=== PATIENT | female | born 1935 | race Caucasian/White ===

== ENCOUNTER 2018-09-13 10:55 | Day surgery (SDC) | payer OTHER ==
[2018-09-13 11:10] LABS: Absolute Lymphocytes (CBC) 2.3 K/uL (0.7-4.9); Absolute Monocytes 0.6 K/uL (0.1-1.3); Absolute Neutrophil 3.3 K/uL (1.8-8.0); Eosinophils % 3.4 % (0-4.4); Hematocrit 40.1 % (36.0-45.0); Lymphocytes % 35.6 % (15.3-44.8); MPV 8.5 fL (7.6-11.3); Monocytes % 8.6 % (3.3-12.3); RBC Red Blood Cell Count 4.38 M/uL (3.86-4.86)
[2018-09-13 11:13] LABS: Protime INR 0.96
[2018-09-13 11:28] LABS: Urine Appearance CLEAR; Urine Bilirubin NEGATIVE (NEG); Urine Blood NEGATIVE (NEG); Urine Color YELLOW; Urine Glucose NEGATIVE (NEG); Urine Protein NEGATIVE (NEG); Urine Specific Gravity 1.015 (1.005-1.030); Urine Urobilinogen 0.2 mg/dL (0.2-1.0); Urine pH 6.5 (5.0-7.0)
[2018-09-13 11:36] LABS: Phosphorus 3.1 mg/dL (2.5-4.9); Potassium 4.4 mmol/L (3.5-5.1); Uric Acid 5.6 mg/dL (2.6-6.0)
[2018-09-13 11:55] LABS: Urine Microscopic Reflex ORDER UMIC
[2018-09-13 12:07] LABS: Urine Bacteria <20 /HPF (<20); Urine Culture Reflex Order NOT NEEDED; Urine Mucus 1+ /HPF (NONE SEEN); Urine RBC <5 /HPF (NONE SEEN)
[2018-09-13] MEDS ORDERED: GENTAMICIN 100 MG/100 ML BAG 100 ML IV ONE (12:30)
[2018-09-13] MEDS ORDERED: Ringers Lactate 1,000 ML IV ONE (12:30)
[2018-09-13] MEDS ORDERED: FENTANYL CITR 100 MCG/2 ML ONE ×2 (14:57→16:32)
[2018-09-13] MEDS ORDERED: PROPOFOL 200 MG/20 ML VIAL IV ONE (14:58)
[2018-09-13] MEDS ORDERED: SCOPOLAMINE HYDROBROMIDE PATCH TD ONE (14:58)
[2018-09-13] MEDS ORDERED: LIDOCAINE 1% MPF 2 ML AMPULE ONE (15:00)
[2018-09-13] MEDS ORDERED: EPHEDRINE SULF 50 MG/10 ML SYR ONE (15:34)
[2018-09-13] MEDS ORDERED: GLYCOPYRROLATE 0.2 MG/ML SYR ONE (16:47)
--- NOTE | 2018-09-13 17:30 | RAD REPORT ---
EXAM DESCRIPTION: RAD - Fluoroscopy <1 Hour - 09/13/2018 5:24 pm CLINICAL HISTORY: Venous catheter insertion. LT KIDNEY STONE REMOVAL COMPARISON: Multiplanar Reconstruction dated 09/09/2018 FINDINGS: Fluoroscopic imaging is submitted of the abdomen related to retrograde pyelography with st one removal. Details of the procedure not available. Fluoroscopy time: 3 minutes and 24 seconds.
[2018-09-13] MEDS ORDERED: HYDROCODONE/APAP 5/325 MG TAB ONE (18:42)
[2018-09-13 18:56] VITALS: BP 159/77; TEMP 97.8; O2SAT 97
== END 2018-09-13 18:50 | disposition home or self-care (01) ==
LOC: OR 10:55
PROVIDERS: ATTEND Urology
PROC: 0T778DZ Dilation of Left Ureter with Intraluminal Device, Via Natural or Artificial Opening Endoscopic (ICD-10-PCS; 2018-09-13)
PROC: 0TF7XZZ Fragmentation in Left Ureter, External Approach (ICD-10-PCS; principal; 2018-09-13 11:45)
DX: N20.1 Calculus of ureter (principal); N13.30 Unspecified hydronephrosis; Q62.39 Other obstructive defects of renal pelvis and ureter; N81.6 Rectocele; N39.3 Stress incontinence (female) (male); N81.9 Female genital prolapse, unspecified; E78.00 Pure hypercholesterolemia, unspecified; I10 Essential (primary) hypertension; G47.00 Insomnia, unspecified; G62.9 Polyneuropathy, unspecified; M47.819 Spondylosis without myelopathy or radiculopathy, site unspecified; F41.9 Anxiety disorder, unspecified; Z79.899 Other long term (current) drug therapy
CPT/HCPCS: 87088; 85025; 87086; 80048; 36415; 84100; 85610; 84550; 85730; 87077; 87186; 50590; 52332; J2704; J3010 ×2; J2001; J1580; Q9967; 76000; 81003; 81015

== ENCOUNTER 2018-09-27 08:07 | Day surgery (SDC) | payer OTHER ==
[2018-09-27] MEDS ORDERED: GENTAMICIN 80 MG/100 ML BAG 80 MG/100 ML BAG IV ONE (08:43)
[2018-09-27] MEDS ORDERED: Ringers Lactate 1,000 ML IV ONE (08:43)
[2018-09-27] MEDS ORDERED: SCOPOLAMINE HYDROBROMIDE PATCH TD ONE (08:44)
--- NOTE | 2018-09-27 08:49 | RAD REPORT ---
EXAM DESCRIPTION: RAD - Abdomen 1 View (KUB) - 09/27/2018 8:32 am CLINICAL HISTORY: pre op Pain COMPARISON: Abdomen 1 View (KUB) dated 09/19/2018 FINDINGS: The bowel gas pattern is non-obstructive. No evidence of free air or pneumatosis. Left venita ble-J stent remains in place. A amorphous calcification along the course of the stent inferior to the left SI joint remains unchanged.
[2018-09-27] MEDS ORDERED: PROPOFOL 200 MG/20 ML VIAL IV ONE (09:04)
[2018-09-27] MEDS ORDERED: FENTANYL CITR 100 MCG/2 ML ONE (09:05)
[2018-09-27] MEDS ORDERED: LIDOCAINE 2% MPF 5 ML VIAL ONE (09:05)
[2018-09-27] MEDS ORDERED: ONDANSETRON 4 MG/2 ML VIAL ONE (09:06)
[2018-09-27] MEDS ORDERED: DEXAMETHASONE 10 MG/ML VIAL ONE (09:07)
--- NOTE | 2018-09-27 10:44 | RAD REPORT ---
EXAM DESCRIPTION: RAD - Cystography - 09/27/2018 10:30 am FINDINGS: There were 28 KUB images obtained during fluoroscopic assisted placement of a left uretera l stent. Fluoro time was 2 minutes 16 seconds. Images show stepwise placement of the stent. No suspicious or unexpected finding.
[2018-09-27] MEDS: HYDROMORPHONE HCL 1 MG/ML INJ ONE ×3 (10:48→10:53)
[2018-09-27 12:12] VITALS: TEMP 97.9
[2018-09-27 12:14] VITALS: BP 136/49; O2SAT 95
== END 2018-09-27 12:04 | disposition home or self-care (01) ==
LOC: OR 08:07
PROVIDERS: ATTEND Urology
PROC: 0T778DZ Dilation of Left Ureter with Intraluminal Device, Via Natural or Artificial Opening Endoscopic (ICD-10-PCS; 2018-09-27)
PROC: 0TF78ZZ Fragmentation in Left Ureter, Via Natural or Artificial Opening Endoscopic (ICD-10-PCS; principal; 2018-09-27 09:00)
DX: N13.2 Hydronephrosis with renal and ureteral calculous obstruction (principal); Q62.39 Other obstructive defects of renal pelvis and ureter; N81.6 Rectocele; N81.9 Female genital prolapse, unspecified; N39.3 Stress incontinence (female) (male); E78.00 Pure hypercholesterolemia, unspecified; I10 Essential (primary) hypertension; G47.00 Insomnia, unspecified; G62.9 Polyneuropathy, unspecified; F41.9 Anxiety disorder, unspecified; M47.819 Spondylosis without myelopathy or radiculopathy, site unspecified; Z79.899 Other long term (current) drug therapy
CPT/HCPCS: 51600; 52356; 74018; 74430; J1100; J1170; J1580; J2405; J2704; J3010; Q9967

== ENCOUNTER 2019-04-04 11:53 | Emergency (ER) | payer OTHER ==
[2019-04-04] MEDS ORDERED: MAGNESIUM SULFATE 1 gm IVPB 1 GM/100 ML BAG IV ONE (12:33)
[2019-04-04] MEDS ORDERED: TAMSULOSIN 0.4 MG SR CAP ONE (12:33)
[2019-04-04] MEDS ORDERED: MEPERIDINE HCL 25 MG/0.5 ML ONE ×2 (12:33→13:43)
--- NOTE | 2019-04-04 12:41 | RAD REPORT ---
EXAM DESCRIPTION: CT - Stone Protocol - 04/04/2019 12:29 pm CLINICAL HISTORY: Left flank pain, back pain that radiates to the left groin, history of kidney ston es COMPARISON: CT study August 2018 TECHNIQUE: Axial 5 mm thick images were obtained without oral or IV contrast. The [id number] span s the entirety of the system partially obscuring uppermost abdomen and lung bases. All CT scans are performed using dose optimization technique as appropriate and may include automated exposure control or mA/KV adjustment according to patient size. FINDINGS: No right-sided hydronephrosis and no right-sided obstructing calculus. There is a 7 mm sarahy cification upper pole calyx on the right. Severe dilatation of the pelvis, calices and proximal urete r noted down to the pelvic inlet level. There is a 3 millimeter ureteral calculus at the pelvic inlet . Distal to the stone the ureter is decompressed with no additional ureteral calculi seen. No bladder calculus. The August study showed similar pronounced dilatation of the left collecting system with a much larger stone at the pelvic inlet. Patient likely has chronic hydronephrosis and possible stric ture of the ureter at the pelvic inlet. Perinephric stranding is present on the left. No suspicious renal masses. Isodense masses and pyelonephritis are not excluded on a stone protocol CT scan. No significant adrenal finding. Imaged portions of the liver, spleen and pancreas show no suspicious findings on non-contrast imaging . No gallbladder or biliary tree abnormality identified. No suspicious bowel findings. Cecum is low lying along the right-side pelvic floor. No suspicion for appendicitis. A small fat only umbilical hernia is seen. No mass or bulky lymphadenopathy. No free air, free fluid or pneumatosis. Arterial tree calcifications are present. Bony degenerative changes are present without acute compone nt. IMPRESSION: Patient has severe hydronephrosis and hydroureter down to the pelvic inlet where there i s any 3 millimeter stone. Severity the hydronephrosis matches the August study where there was a much larger stone present at the pelvic inlet. Patient may well have stricture of the ureter near the pelvic inlet with chronic le ft-sided hydronephrosis. Isodense masses and pyelonephritis are not excluded on stone protocol technique.
[2019-04-04 13:10] LABS: Absolute Lymphocytes (CBC) 1.7 K/uL (0.7-4.9); Basophils % 0.5 % (0-1.3); Hematocrit 41.7 % (36.0-45.0); Lymphocytes % 13.1 % (15.3-44.8); MPV 8.7 fL (7.6-11.3); RBC Red Blood Cell Count 4.64 M/uL (3.86-4.86)
[2019-04-04 13:14] LABS: Protime INR 0.96
[2019-04-04 13:20] LABS: Potassium 4.4 mmol/L (3.5-5.1)
[2019-04-04 13:33] LABS: Urine Blood 2+ (NEG); Urine Glucose NEGATIVE (NEG); Urine Protein 2+ (NEG); Urine pH 7.5 (5.0-7.0)
[2019-04-04 13:40] LABS: Urine Bacteria >50 /HPF (<20)
[2019-04-04 13:41] LABS: Urine Culture Reflex Order NOT NEEDED
[2019-04-04] MEDS ORDERED: KETOROLAC 30 MG/ML INJ ONE (13:43)
[2019-04-04] MEDS ORDERED: CEFTRIAXONE/SWI 1gm 1 GM/10 ML SYR ONE (14:42)
--- NOTE | 2019-04-04 16:03 | ER ---
Nurse's Notes [facility] Name: Karen Marte Age: 83 yrs Sex: Female : 1935 Arrival Date: 04/04/2019 Time: 11:57 Bed 25 Private MD: Be Marcus V Diagnosis: Urinary tract infection, site not specified;Ureterolithiasis;Hydronephrosis with ureteral stricture, not elsewhere classified Presentation: 04/04 12:18 Presenting complaint: Patient states: i woke up this 7 am with pain on my L lower back hj that moves to the L groin area; states hx of kidney stones with lithotripsy procedure and laser in the past; denies urinary symptoms;. Transition of care: patient was not received from another setting of care. Onset of symptoms was April 04, 2019. Risk Assessment: Do you want to hurt yourself or someone else? Patient reports no desire to harm self or others. Initial Sepsis Screen: Does the patient meet any 2 criteria? No. Patient's initial sepsis screen is negative. Does the patient have a suspected source of infection? No. Patient's initial sepsis screen is negative. Care prior to arrival: None. 12:18 Method Of Arrival: Ambulatory hj 12:18 Acuity: ALEXANDER 3 hj Triage Assessment: 12:22 General: Appears in no apparent distress. uncomfortable, Behavior is calm, cooperative, hj appropriate for age. Pain: Complains of pain in pelvis and left low back. GI: Reports lower abdominal pain. Historical: - Allergies: 12:21 Codeine; hj - PMHx: 12:21 Hypertension; hj - PSHx: 12:21 Lithotripsy; hj - Immunization history:: Adult Immunizations up to date. - Social history:: Smoking status: Patient/guardian denies using tobacco, Patient/guardian denies using alcohol. - Ebola Screening: : Patient negative for fever greater than or equal to 101.5 degrees Fahrenheit, and additional compatible Ebola Virus Disease symptoms Patient denies exposure to infectious person Patient denies travel to an Ebola-affected area in the 21 days before illness onset. - Family history:: not pertinent. - Hospitalizations: : No recent hospitalization is reported. Screenin:21 Abuse screen: Denies threats or abuse. Denies injuries from another. Nutritional hj screening: No deficits noted. Tuberculosis screening: No symptoms or risk factors identified. Fall Risk None identified. Assessment: 12:22 GI: Bowel sounds present X 4 quads. hj Vital Signs: 12:23 BP 153 / 93; Pulse 58; Resp 18; Temp 98.6(O); Pulse Ox 98% on R/A; Weight 86.18 kg; hj Height 5 ft. 5 in. (165.10 cm); Pain 10/10; 14:22 BP 112 / 55; Pulse 56; Resp 18; Pulse Ox 95% on R/A; mg2 15:46 BP 114 / 53; Pulse 60; Resp 18; Temp 98; Pulse Ox 100% on R/A; Pain 0/10; mg2 12:23 Body Mass Index 31.62 (86.18 kg, 165.10 cm) hj ED Course: 11:57 Patient arrived in ED. mr 11:57 Be Marcus MD is Private Physician. mr 12:14 Carl Mitchell MD is Attending Physician. rn 12:18 Kd Bro RN is Primary Nurse. hj 12:20 Triage completed. hj 12:22 Arm band placed on right wrist. hj 12:23 Patient has correct armband on for positive identification. Placed in gown. Bed in low hj position. Call light in reach. Side rails up X 1. Adult w/ patient. 12:45 Initial lab(s) drawn, by me, sent to lab. Inserted saline lock: 22 gauge in left hj antecubital area, using aseptic technique. Blood collected. 12:46 CT Stone Protocol In Process Unspecified. EDMS 14:22 No provider procedures requiring assistance completed. mg2 15:31 Freddy Boyer MD is Referral Physician. rn 15:46 IV discontinued, intact, bleeding controlled, No redness/swelling at site. Pressure mg2 dressing applied. Administered Medications: 12:45 Drug: Flomax 0.4 mg Route: PO; hj 13:11 Follow up: Response: No adverse reaction hj 12:45 Drug: Magnesium Sulfate 1 grams Route: IVPB; Infused Over: 1 hrs; Site: left hj antecubital; 12:45 Drug: Demerol - Meperidine 12.5 mg Route: IVP; Site: left antecubital; hj 13:11 Follow up: Response: No adverse reaction; Pain is decreased hj 13:50 Drug: TORadol - Ketorolac 15 mg Route: IVP; Site: left antecubital; mg2 14:23 Follow up: Response: No adverse reaction; Marked relief of symptoms; RASS: Alert and mg2 Calm (0) 13:50 Drug: Demerol 25 mg Route: IVP; Site: left antecubital; mg2 14:24 Follow up: Response: No adverse reaction; Marked relief of symptoms; RASS: Alert and mg2 Calm (0) 14:47 Drug: Rocephin 1 grams Route: IV; Rate: 1 calculated rate; Site: left antecubital; mg2 15:27 Follow up: Response: No adverse reaction; IV Status: Completed infusion mg2 Outcome: 15:31 Discharge ordered by MD. rn 15:51 Discharged to home via wheelchair, with family. mg2 15:51 Condition: stable 15:51 Discharge instructions given to patient, family, Instructed on discharge instructions, follow up and referral plans. medication usage, Demonstrated understanding of instructions, follow-up care, medications, Prescriptions given X 3. 15:51 Patient left the ED. mg2 Signatures: Dispatcher [employer] BEATRICENJ Polina Hernandez Roman, MD MD rn Joaquin, Henry, RN RN hj Gardose, Michele, RN RN mg2
--- NOTE | 2019-04-04 16:04 | EDPHYS ---
Physician Documentation [facility] Name: Karen Marte Age: 83 yrs Sex: Female : 1935 Arrival Date: 04/04/2019 Time: 11:57 Bed 25 Private MD: Be Marcus V ED Physician Carl Mitchell HPI: 04/04 12:20 This 83 yrs old Female presents to ER via Ambulatory with complaints of rn Possible Kidney Stone. 12:20 The patient complains of pain in the left low back. The pain radiates to the pelvis. rn Onset: The symptoms/episode began/occurred this morning. Modifying factors: The symptoms are alleviated by nothing. the symptoms are aggravated by nothing. Severity of pain: At its worst the pain was moderate in the emergency department the pain is unchanged. The patient has experienced similar episodes in the past. Has hx of kidney stones, has required procedures before with Dr. Boyer, pain began today, no fever, + nausea, no diarrhea. Identical pain to previous kidney stones, wraps around to left groin.. Historical: - Allergies: 12:21 Codeine; hj - PMHx: 12:21 Hypertension; hj - PSHx: 12:21 Lithotripsy; hj - Immunization history:: Adult Immunizations up to date. - Social history:: Smoking status: Patient/guardian denies using tobacco, Patient/guardian denies using alcohol. - Ebola Screening: : Patient negative for fever greater than or equal to 101.5 degrees Fahrenheit, and additional compatible Ebola Virus Disease symptoms Patient denies exposure to infectious person Patient denies travel to an Ebola-affected area in the 21 days before illness onset. - Family history:: not pertinent. - Hospitalizations: : No recent hospitalization is reported. ROS: 12:20 Constitutional: Negative for fever, chills, and weight loss, Eyes: Negative for injury, rn pain, redness, and discharge, Cardiovascular: Negative for chest pain, palpitations, and edema, Respiratory: Negative for shortness of breath, cough, wheezing, and pleuritic chest pain, Abdomen/GI: + nausea, negative for vomiting/diarrhea Back: Negative for injury, + left flank pain : Negative for injury, discharge, and swelling, MS/Extremity: Negative for injury and deformity, Neuro: Negative for headache, weakness, numbness, tingling, and seizure. Exam: 12:20 Constitutional: This is a well developed, well nourished patient who is awake, alert rn Head/Face: Normocephalic, atraumatic. ENT: MMM Cardiovascular: Regular rate and rhythm. No pulse deficits. Respiratory: Lungs have equal breath sounds bilaterally, clear to auscultation. No increased work of breathing, no retractions or nasal flaring. Abdomen/GI: soft, non-tender MS/ Extremity: Pulses equal, no cyanosis. Neurovascular intact. Full, normal range of motion. Equal circumference. Neuro: Awake and alert, GCS 15, oriented to person, place, time, and situation. Cranial nerves II-XII grossly intact. Motor strength 5/5 in all extremities. Sensory grossly intact. Cerebellar exam normal. Vital Signs: 12:23 BP 153 / 93; Pulse 58; Resp 18; Temp 98.6(O); Pulse Ox 98% on R/A; Weight 86.18 kg; hj Height 5 ft. 5 in. (165.10 cm); Pain 10/10; 14:22 BP 112 / 55; Pulse 56; Resp 18; Pulse Ox 95% on R/A; mg2 15:46 BP 114 / 53; Pulse 60; Resp 18; Temp 98; Pulse Ox 100% on R/A; Pain 0/10; mg2 12:23 Body Mass Index 31.62 (86.18 kg, 165.10 cm) MDM: 12:14 Patient medically screened. rn 14:43 ED course: Pain resolved, getting rocephin, consulted with Dr. Boyer, ok to dc home, rn will continue to observe here, prescriptions given to family member so she could go fill them and save time during observation period. . 15:30 Differential diagnosis: nephrolithiasis, UTI. Data reviewed: vital signs, nurses notes, hvac journeyman test result(s), radiologic studies, CT scan, and as a result, I will discharge patient. Counseling: I had a detailed discussion with the patient and/or guardian regarding: the historical points, exam findings, and any diagnostic results supporting the discharge/admit diagnosis, lab results, radiology results, the need for outpatient follow up, to return to the emergency department if symptoms worsen or persist or if there are any questions or concerns that arise at home. Response to treatment: the patient's symptoms have markedly improved after treatment, the patient's condition has returned to base line, the patient is now symptom free, and as a result, I will discharge patient. Special discussion: I discussed with the patient/guardian in detail that at this point there is no indication for admission to the hospital. It is understood, however, that if the symptoms persist or worsen the patient needs to return immediately for re-evaluation. Based on the history and exam findings, there is no indication for further emergent testing or inpatient evaluation. I discussed with the patient/guardian the need to see the urologist for further evaluation of the symptoms. 04/04 12:19 Order name: CBC with Diff rn 04/04 12:19 Order name: Basic Metabolic Panel; Complete Time: 13:34 rn 04/04 12:19 Order name: Urine Microscopic Only; Complete Time: 14:33 rn 04/04 12:19 Order name: Urine Culture 04/04 12:20 Order name: PT-INR; Complete Time: 13:34 rn 04/04 12:20 Order name: Ptt, Activated; Complete Time: 13:34 rn 04/04 12:19 Order name: CT Stone Protocol; Complete Time: 13:05 rn 04/04 12:45 Order name: Urine Dipstick--Ancillary (enter results) bd 04/04 12:19 Order name: IV Start; Complete Time: 12:56 rn 04/04 12:19 Order name: Urine Dipstick-Ancillary (obtain specimen); Complete Time: 12:56 rn Administered Medications: 12:45 Drug: Flomax 0.4 mg Route: PO; hj 13:11 Follow up: Response: No adverse reaction hj 12:45 Drug: Magnesium Sulfate 1 grams Route: IVPB; Infused Over: 1 hrs; Site: left hj antecubital; 12:45 Drug: Demerol - Meperidine 12.5 mg Route: IVP; Site: left antecubital; hj 13:11 Follow up: Response: No adverse reaction; Pain is decreased hj 13:50 Drug: TORadol - Ketorolac 15 mg Route: IVP; Site: left antecubital; mg2 14:23 Follow up: Response: No adverse reaction; Marked relief of symptoms; RASS: Alert and mg2 Calm (0) 13:50 Drug: Demerol 25 mg Route: IVP; Site: left antecubital; mg2 14:24 Follow up: Response: No adverse reaction; Marked relief of symptoms; RASS: Alert and mg2 Calm (0) 14:47 Drug: Rocephin 1 grams Route: IV; Rate: 1 calculated rate; Site: left antecubital; mg2 15:27 Follow up: Response: No adverse reaction; IV Status: Completed infusion mg2 Disposition: 04/04/19 15:31 Discharged to Home. Impression: Urinary tract infection, site not specified, Ureterolithiasis, Hydronephrosis with ureteral stricture, not elsewhere classified. - Condition is Stable. - Discharge Instructions: Kidney Stones, Urinary Tract Infection, Adult, Hydronephrosis. - Prescriptions for Zofran ODT 4 mg Oral tablet,disintegrating - place 1 tablet by TRANSLINGUAL route every 8 hours As needed; 20 tablet. Flomax 0.4 mg Oral Capsule, Sust. Release 24 hr - take 1 capsule by ORAL route once daily 1/2 hour following the same meal each day. Stop taking when you feel like you have passed the kidney stone; 7 capsule. cefpodoxime 100 mg Oral Tablet - take 2 tablet by ORAL route every 12 hours for 10 days take with food; 40 tablet. - Medication Reconciliation Form, Thank You Letter, Antibiotic Education, Prescription Opioid Use form. - Follow up: Freddy Boyer; When: As needed; Reason: Recheck today's complaints, Re-evaluation by your physician. - Problem is new. - Symptoms have improved. Signatures: Dispatcher [employer] EDMS Carl Mitchell MD MD rn Joaquin, Henry, RN RN Ming Doss RN RN mg2 Corrections: (The following items were deleted from the chart) 15:51 15:31 04/04/2019 15:31 Discharged to Home. Impression: Urinary tract infection, site mg2 not specified; Ureterolithiasis; Hydronephrosis with ureteral stricture, not elsewhere classified. Condition is Stable. Discharge Instructions: Kidney Stones, Urinary Tract Infection, Adult, Hydronephrosis. Prescriptions for Zofran ODT 4 mg Oral tablet,disintegrating - place 1 tablet by TRANSLINGUAL route every 8 hours As needed; 20 tablet, Flomax 0.4 mg Oral Capsule, Sust. Release 24 hr - take 1 capsule by ORAL route once daily 1/2 hour following the same meal each day. Stop taking when you feel like you have passed the kidney stone; 7 capsule, cefpodoxime 100 mg Oral Tablet - take 2 tablet by ORAL route every 12 hours for 10 days take with food; 40 tablet. and Forms are Medication Reconciliation Form, Thank You Letter, Antibiotic Education, Prescription Opioid Use. Follow up: Freddy Boyer; When: As needed; Reason: Recheck today's complaints, Re-evaluation by your physician. Problem is new. Symptoms have improved. rn
[2019-04-04 16:31] VITALS: BP 114/53; TEMP 98; O2SAT 100
== END 2019-04-04 15:51 | disposition home or self-care (01) ==
LOC: ER 11:53
DX: N39.0 Urinary tract infection, site not specified (principal); N13.1 Hydronephrosis with ureteral stricture, not elsewhere classified; I10 Essential (primary) hypertension; Z88.5 Allergy status to narcotic agent
CPT/HCPCS: 96365; 87088; 85025; 87086; 80048; 36415; 85610; 85730; 76377; 74176; 96375; 99284; J3475; J2175 ×2; J0696; 81003; 81015; 87077; 87186

== ENCOUNTER 2020-07-07 04:06 | Observation (INO) | payer OTHER ==
[2020-07-07 04:45] LABS: Absolute Lymphocytes (CBC) 2.2 K/uL (0.7-4.9); Basophils % 1.1 % (0-1.3); Hematocrit 39.4 % (36.0-45.0); Lymphocytes % 24.1 % (15.3-44.8); MPV 8.3 fL (7.6-11.3); RBC Red Blood Cell Count 4.33 M/uL (3.86-4.86)
[2020-07-07] MEDS ORDERED: NA CHLORIDE 0.9% 1,000 ML ONE (04:46)
[2020-07-07] MEDS ORDERED: MORPHINE 2 MG/ML SYR ONE ×2 (04:46→05:29)
[2020-07-07] MEDS ORDERED: ONDANSETRON 4 MG/2 ML VIAL ONE (04:46)
[2020-07-07 05:01] LABS: ALT/SGPT 24 U/L (12-78); AST/SGOT 22 U/L (15-37); Albumin 3.4 g/dL (3.4-5.0); Alkaline Phosphatase 57 U/L (45-117); BUN Blood Urea Nitrogen 24 mg/dL (7-18); Bicarbonate 29 mmol/L (21-32); Bilirubin Direct < 0.1 mg/dL (0-0.2); Bilirubin Total 0.3 mg/dL (0.2-1.0); Glucose Level 128 mg/dL (74-106); Lipase 214 U/L (73-393); Potassium 4.6 mmol/L (3.5-5.1); Sodium Level 137 mmol/L (136-145)
[2020-07-07] MEDS ORDERED: CEFTRIAXONE/SWI 1gm 1 GM/10 ML SYR ONE (06:24)
[2020-07-07 06:28] LABS: Urine Blood 2+ (NEG); Urine Glucose NEGATIVE (NEG); Urine Protein 3+ (NEG); Urine Specific Gravity 1.025 (1.005-1.030)
--- NOTE | 2020-07-07 06:38 | ER ---
Nurse's Notes [facility] Name: Karen Marte Age: 84 yrs Sex: Female : 1935 Arrival Date: 07/07/2020 Time: 04:10 Bed 8 Private MD: Diagnosis: Pyelonephritis;Intractable Pain Presentation: 07/07 04:25 Chief complaint: Patient states: PAIN STARTED YESTERDAY, GOT WORSE TONIGHT AT 0230. rv DULL ACHING PAIN, 7/10, CONSTANT. DENIES FEVER, NAUSEA, AND URINARY SYMPTOMS. Coronavirus screen: Client denies travel out of the [place] in the last 14 days. Ebola Screen: No symptoms or risks identified at this time. Initial Sepsis Screen: Does the patient meet any 2 criteria? No. Patient's initial sepsis screen is negative. Does the patient have a suspected source of infection? No. Patient's initial sepsis screen is negative. Risk Assessment: Do you want to hurt yourself or someone else? Patient reports no desire to harm self or others. Onset of symptoms was July 07, 2020 at 02:30. 04:25 Method Of Arrival: Wheelchair rv 04:25 Acuity: ALEXANDER 3 rv Triage Assessment: 04:28 General: Appears uncomfortable, Behavior is calm, cooperative. Pain: Complains of pain rv in left low back Pain does not radiate. Pain currently is 7 out of 10 on a pain scale. Quality of pain is described as aching, dull, Pain began 1 day ago. Is continuous. EENT: No signs and/or symptoms were reported regarding the EENT system. Neuro: Level of Consciousness is awake, alert, obeys commands, Oriented to person, place, time, situation. Cardiovascular: Patient's skin is warm and dry. Respiratory: Airway is patent Respiratory effort is even, unlabored, Breath sounds are clear bilaterally. Derm: Skin is intact. Historical: - Allergies: 04:28 Codeine; rv - PMHx: 04:28 Hypertension; Kidney stones; KIDNEY DISEASE; rv - PSHx: 04:28 KIDNEY STONE SURGERY; Hysterectomy; Appendectomy; rv - Immunization history:: Adult Immunizations up to date. - Social history:: Smoking status: Patient denies any tobacco usage or history of. Screenin:30 Abuse screen: Denies threats or abuse. Denies injuries from another. Nutritional rv screening: No deficits noted. Tuberculosis screening: No symptoms or risk factors identified. Fall Risk None identified. Assessment: 05:14 Reassessment: patient is back from CT scan. still complaining of flank pain. vital rv signs stable. referred to DR SEVILLA. new order received. 06:35 Reassessment: DR SEVILLA TALKED TO THE PATIENT WITH FAMILY AT BEDSIDE. EXPLAINED THE rv RESULT OF CT SCAN AND LABS. PATIENT AND FAMILY AGREED WITH PLAN OF CARE. PATIENT IS FOR ADMISSION. 07:35 Reassessment: Patient appears in no apparent distress at this time. Patient is alert, vg1 oriented x 3, equal unlabored respirations, skin warm/dry/pink. Resting in bed awaiting admit to room 221. Patient states feeling better. 07:53 Reassessment: Gave report to Kelsy BERNAL. vg1 Vital Signs: 04:25 BP 124 / 56; Pulse 52; Resp 15; Temp 98.3; Pulse Ox 96% on R/A; Weight 79.38 kg; Height rv 5 ft. 4 in. (162.56 cm); Pain 7/10; 05:43 BP 153 / 63; Pulse 65; Resp 16; Pulse Ox 96% on R/A; rv 06:33 BP 119 / 66; Pulse 67; Resp 16; Pulse Ox 96% ; rv 07:00 BP 115 / 40; Pulse 65; Resp 18; Pulse Ox 94% on R/A; vg1 07:30 BP 127 / 51; Pulse 68; Resp 20; Pulse Ox 95% on R/A; vg1 04:25 Body Mass Index 30.04 (79.38 kg, 162.56 cm) rv ED Course: 04:10 Patient arrived in ED. ag3 04:16 Aric Gutierres, DOLORES is Primary Nurse. rv 04:17 Gabriel Sevilla MD is Attending Physician. mh7 04:27 Triage completed. rv 04:30 Arm band placed on right wrist. Patient placed in the treatment room, on a stretcher, rv Patient notified of wait time. 04:30 Patient has correct armband on for positive identification. Pulse ox on. NIBP on. rv 04:38 Initial lab(s) drawn, by ED staff, sent to lab. Inserted saline lock: 20 gauge in left rv antecubital area, using aseptic technique. BY DARI BERNAL. 05:16 CT Stone Protocol In Process Unspecified. EDMS 06:33 No provider procedures requiring assistance completed. rv 06:36 Be Marcus MD is Hospitalizing Provider. 7 Administered Medications: 04:37 Drug: morphine 2 mg {Note: RASS 0.} Route: IVP; Site: left antecubital; rv 05:18 Follow up: Response: No adverse reaction; Pain is unchanged, physician notified; RASS: rv Alert and Calm (0) 04:37 Drug: Zofran (Ondansetron) 4 mg Route: IVP; Site: left antecubital; rv 05:18 Follow up: Response: No adverse reaction rv 04:37 Drug: NS 0.9% 1000 ml Route: IV; Rate: 1000 ml; Site: left antecubital; rv 06:05 Follow up: IV Status: Completed infusion; IV Intake: 1000ml rv 05:18 Drug: morphine 2 mg {Note: rass 0.} Route: IVP; Site: left antecubital; rv 06:09 Follow up: Response: No adverse reaction; Pain is decreased; RASS: Alert and Calm (0) rv 06:13 Drug: Rocephin - (cefTRIAXone) 1 grams Route: IVPB; Infused Over: 30 mins; Site: left rv antecubital; 06:33 Follow up: Response: No adverse reaction; IV Status: Completed infusion rv 06:32 Drug: Demerol 25 mg {Note: rass 0.} Route: IVP; Site: left antecubital; rv 07:01 Follow up: Response: No adverse reaction; Pain is decreased; RASS: Drowsy (-1) rv Intake: 06:05 IV: 1000ml; Total: 1000ml. rv Outcome: 06:37 Decision to Hospitalize by Provider. mh7 08:06 Patient left the ED. sv Signatures: Dispatcher [employer] EDMS Ella Sutherland RN RN sv Vicente, Ronaldo RN RN rv Yessica Perez Victoria, RN RN vg1 Gabriel Sevilla MD MD 7
--- NOTE | 2020-07-07 06:38 | EDPHYS ---
Physician Documentation [facility] Name: Karen Marte Age: 84 yrs Sex: Female : 1935 Arrival Date: 07/07/2020 Time: 04:10 Bed 8 Private MD: ED Physician Gabriel Sevilla HPI: 07/07 05:34 This 84 yrs old Female presents to ER via Wheelchair with complaints of Flank mh7 Pain. 05:34 The patient complains of pain in the left flank. The pain does not radiate. Onset: The mh7 symptoms/episode began/occurred yesterday. Modifying factors: The symptoms are alleviated by nothing. the symptoms are aggravated by movement, palpation/percussion. 05:35 Associated signs and symptoms: Pertinent negatives: diarrhea, dizziness, dysuria, mh7 fever, urinary frequency, headache, hematuria, nausea, pain radiating to the lower extremities, vomiting. Severity of pain: At its worst the pain was moderate last night, in the emergency department the pain is unchanged. Historical: - Allergies: 04:28 Codeine; rv - PMHx: 04:28 Hypertension; Kidney stones; KIDNEY DISEASE; rv - PSHx: 04:28 KIDNEY STONE SURGERY; Hysterectomy; Appendectomy; rv - Immunization history:: Adult Immunizations up to date. - Social history:: Smoking status: Patient denies any tobacco usage or history of. ROS: 05:35 Constitutional: Negative for fever, chills, and weight loss, Eyes: Negative for injury, mh7 pain, redness, and discharge, ENT: Negative for injury, pain, and discharge, Neck: Negative for injury, pain, and swelling, Cardiovascular: Negative for chest pain, palpitations, and edema, Respiratory: Negative for shortness of breath, cough, wheezing, and pleuritic chest pain, Abdomen/GI: Negative for abdominal pain, nausea, vomiting, diarrhea, and constipation, : Negative for injury, bleeding, discharge, and swelling, MS/Extremity: Negative for injury and deformity, Skin: Negative for injury, rash, and discoloration, Neuro: Negative for headache, weakness, numbness, tingling, and seizure, Psych: Negative for depression, anxiety, suicide ideation, homicidal ideation, and hallucinations, Allergy/Immunology: Negative for hives, rash, and allergies, Endocrine: Negative for neck swelling, polydipsia, polyuria, polyphagia, and marked weight changes, Hematologic/Lymphatic: Negative for swollen nodes, abnormal bleeding, and unusual bruising. Exam: 05:35 Constitutional: This is a well developed, well nourished patient who is awake, alert, mh7 and in no acute distress. Head/Face: Normocephalic, atraumatic. Eyes: Pupils equal round and reactive to light, extra-ocular motions intact. Lids and lashes normal. Conjunctiva and sclera are non-icteric and not injected. Cornea within normal limits. Periorbital areas with no swelling, redness, or edema. Neck: Trachea midline, no thyromegaly or masses palpated, and no cervical lymphadenopathy. Supple, full range of motion without nuchal rigidity, or vertebral point tenderness. No Meningismus. Chest/axilla: Normal chest wall appearance and motion. Nontender with no deformity. No lesions are appreciated. Cardiovascular: Regular rate and rhythm with a normal S1 and S2. No gallops, murmurs, or rubs. Normal PMI, no JVD. No pulse deficits. Respiratory: Lungs have equal breath sounds bilaterally, clear to auscultation and percussion. No rales, rhonchi or wheezes noted. No increased work of breathing, no retractions or nasal flaring. Abdomen/GI: Soft, non-tender, with normal bowel sounds. No distension or tympany. No guarding or rebound. No evidence of tenderness throughout. 05:35 Skin: Warm, dry with normal turgor. Normal color with no rashes, no lesions, and no evidence of cellulitis. MS/ Extremity: Pulses equal, no cyanosis. Neurovascular intact. Full, normal range of motion. Neuro: Awake and alert, GCS 15, oriented to person, place, time, and situation. Cranial nerves II-XII grossly intact. Motor strength 5/5 in all extremities. Sensory grossly intact. Cerebellar exam normal. Normal gait. Psych: Awake, alert, with orientation to person, place and time. Behavior, mood, and affect are within normal limits. 05:35 Back: CVA tenderness, that is moderate, is noted on the left, vertebral tenderness, is not appreciated, muscle spasm, is not present. 05:35 : CVA tenderness, on the left, Bladder: is normal. Vital Signs: 04:25 BP 124 / 56; Pulse 52; Resp 15; Temp 98.3; Pulse Ox 96% on R/A; Weight 79.38 kg; Height rv 5 ft. 4 in. (162.56 cm); Pain 7/10; 05:43 BP 153 / 63; Pulse 65; Resp 16; Pulse Ox 96% on R/A; rv 06:33 BP 119 / 66; Pulse 67; Resp 16; Pulse Ox 96% ; rv 07:00 BP 115 / 40; Pulse 65; Resp 18; Pulse Ox 94% on R/A; vg1 07:30 BP 127 / 51; Pulse 68; Resp 20; Pulse Ox 95% on R/A; vg1 04:25 Body Mass Index 30.04 (79.38 kg, 162.56 cm) rv MDM: 06:34 Differential diagnosis: nephrolithiasis, pyelonephritis, UTI, ruptured AAA, dissecting mh7 AAA. Data reviewed: vital signs, nurses notes, old medical records, lab test result(s), CBC, electrolytes, urinalysis, radiologic studies, CT scan. Data interpreted: Pulse oximetry: on room air is 96 %. Interpretation: normal. Counseling: I had a detailed discussion with the patient and/or guardian regarding: the historical points, exam findings, and any diagnostic results supporting the discharge/admit diagnosis, the presence of at least one elevated blood pressure reading (>120/80) during this emergency department visit, lab results, radiology results, the need for further work-up and treatment in the hospital. Response to treatment: the patient's symptoms have mildly improved after treatment. 06:37 Patient medically screened. [facility] 07/07 04:28 Order name: Basic Metabolic Panel; Complete Time: 05:12 [facility] 07/07 04:28 Order name: CBC with Diff; Complete Time: 05:12 [facility] 07/07 04:28 Order name: Hepatic Function; Complete Time: 05:12 [facility] 07/07 04:28 Order name: Lipase; Complete Time: 05:12 [facility] 07/07 06:09 Order name: Urine Culture 07/07 06:18 Order name: Urine Dipstick--Ancillary (enter results) 2 07/07 04:28 Order name: CT Stone Protocol [facility] 07/07 06:54 Order name: Basic Metabolic Panel [facility] 07/07 06:54 Order name: Basic Metabolic Panel [facility] 07/07 06:54 Order name: CBC with Automated Diff [facility] 07/07 06:54 Order name: CBC with Automated Diff [facility] 07/07 04:28 Order name: IV Saline Lock; Complete Time: 04:30 7 07/07 04:28 Order name: Labs collected and sent; Complete Time: 04:30 7 07/07 04:28 Order name: Urine Dipstick-Ancillary (obtain specimen); Complete Time: 06:05 [facility] 07/07 06:54 Order name: CONS Pharmacy Consult [facility] 07/07 06:54 Order name: NPO EDGA Administered Medications: 04:37 Drug: morphine 2 mg {Note: RASS 0.} Route: IVP; Site: left antecubital; rv 05:18 Follow up: Response: No adverse reaction; Pain is unchanged, physician notified; RASS: rv Alert and Calm (0) 04:37 Drug: Zofran (Ondansetron) 4 mg Route: IVP; Site: left antecubital; rv 05:18 Follow up: Response: No adverse reaction rv 04:37 Drug: NS 0.9% 1000 ml Route: IV; Rate: 1000 ml; Site: left antecubital; rv 06:05 Follow up: IV Status: Completed infusion; IV Intake: 1000ml rv 05:18 Drug: morphine 2 mg {Note: rass 0.} Route: IVP; Site: left antecubital; rv 06:09 Follow up: Response: No adverse reaction; Pain is decreased; RASS: Alert and Calm (0) rv 06:13 Drug: Rocephin - (cefTRIAXone) 1 grams Route: IVPB; Infused Over: 30 mins; Site: left rv antecubital; 06:33 Follow up: Response: No adverse reaction; IV Status: Completed infusion rv 06:32 Drug: Demerol 25 mg {Note: rass 0.} Route: IVP; Site: left antecubital; rv 07:01 Follow up: Response: No adverse reaction; Pain is decreased; RASS: Drowsy (-1) rv Disposition: 07/07/20 06:37 Hospitalization ordered by Be Marcus for Observation. Preliminary diagnosis are Pyelonephritis, Intractable Pain. - Bed requested for Telemetry/MedSurg (observation). - Status is Observation. sv - Condition is Stable. - Problem is new. - Symptoms have improved. Signatures: Dispatcher [employer] Ella Mcclain, RN Gayatri Franco, RN RN Aric Mcpherson RN RN rv Holmes, Maurice, MD MD mh7 Corrections: (The following items were deleted from the chart) 07:26 06:37 Hospitalization Ordered by Be Marcus MD for Observation. Preliminary diagnosis dw is Pyelonephritis; Intractable Pain. Bed requested for Telemetry/MedSurg (observation). Status is Observation. Condition is Stable. Problem is new. Symptoms have improved. mh7 08:06 07:26 07/07/2020 06:37 Hospitalization Ordered by Be Marcus MD for Observation. sv Preliminary diagnosis is Pyelonephritis; Intractable Pain. Bed requested for Telemetry/MedSurg (observation). Status is Observation. Condition is Stable. Problem is new. Symptoms have improved. dw
[2020-07-07] MEDS ORDERED: MEPERIDINE HCL 25 MG/ML SYR ONE (06:39)
[2020-07-07] MEDS ORDERED: ONDANSETRON 4 MG/2 ML VIAL IV PRN (06:41)
[2020-07-07] MEDS ORDERED: ACETAMINOPHEN 500 MG TAB PO PRN (06:41)
[2020-07-07] MEDS ORDERED: D5 0.45 NS 1,000 ML IV SCH (07:00)
[2020-07-07 09:49] VITALS: BMI 30.7
[2020-07-07] MEDS: D5 0.45 NS 1,000 ML IV SCH ×2 (10:31→22:54)
--- NOTE | 2020-07-07 11:01 | P.HP ---
Certification for Inpatient Patient admitted to: Observation With expected LOS: <2 Midnights Practitioner: I am a practitioner with admitting privileges, knowledge of patient current condition, hospital course, and medical plan of care. Services: Services provided to patient in accordance with Admission requirements found in Title 42 Section 412.3 of the Code of Federal Regulations Patient History Date of Service: 07/07/20 Reason for admission: L SIDE FLANK PAIN RADIATES TO FRONT. History of Present Illness: MS. JOHNS HAS HTN. DJD. HISTORY OF RENAL STONES HAS HAD COLIC BEFORE ABOUT A YEAR AGO TAKEN CARE BY DR. REED. SHE FOR LAST TWO DAYS HAS MODERATE TO SEVERE PAIN IN FLANK AND RADIATION TO FRONT. SHE HAS NO FEVER, BUT IS WEAK. Allergies codeine [Codeine] Adverse Reaction (Intermediate, Verified 09/13/18 11:02) VOMITING Home Medications: Furosemide [Lasix*] 20 mg PO DAILY 07/07/20 Losartan Potassium [Cozaar] 25 mg PO DAILY 07/07/20 Multivitamin 1 tab PO DAILY 07/07/20 PARoxetine HCl [Paxil] 30 mg PO DAILY 07/07/20 Spironolactone [Aldactone] 50 mg PO DAILY 07/07/20 bisoproloL fumarate [Zebeta*] 5 mg PO DAILY 07/07/20 clonazePAM [Clonazepam] 0.5 mg PO DAILY 07/07/20 - Past Medical/Surgical History Has patient received pneumonia vaccine in the past: Yes Diabetic: No -: Glaucoma -: Hypertension -: Neuropathy -: Osteoarthritis -: Congestive Heart Failure -: Kidney Stone -: Anxiety -: Hysterectomy -: Bilateral Cataract Removal -: Hemorrhoidectomy - Family History Mother Notes: - Stroke Father Notes: - Heart Attack - Social History Smoking Status: Never smoker Alcohol use: No CD- Drugs: No Caffeine use: Yes Place of Residence: Home Review of Systems 10-point ROS is otherwise unremarkable General: Weakness, Malaise Genitourinary: As per HPI Physical Examination - Vital Signs Temperature: 97.7 F Blood Pressure: 151/63 Pulse: 70 Respirations: 16 Pulse Ox (%): 93 - Physical Exam General: Alert, Mild distress, Moderate distress, Obese HEENT: Atraumatic, PERRLA, Mucous membr. moist/pink, EOMI, Sclerae nonicteric Neck: Supple, 2+ carotid pulse no bruit, No LAD, Without JVD or thyroid abnormality Respiratory: Clear to auscultation bilaterally, Normal air movement Cardiovascular: Regular rate/rhythm, Normal S1 S2 Gastrointestinal: Normal bowel sounds, No tenderness Musculoskeletal: No tenderness Integumentary: No rashes Neurological: Normal gait, Normal speech, Normal strength at 5/5 x4 extr, Normal tone, Normal affect Lymphatics: No axilla or inguinal lymphadenopathy - Studies Laboratory Data (last 24 hrs) 07/07/20 04:35: WBC 9.2, Hgb 13.2, Hct 39.4, Plt Count 255 07/07/20 04:35: Sodium 137, Potassium 4.6, BUN 24 H, Creatinine 1.62 H, Glucose 128 H, Total Bilirubin 0.3, AST 22, ALT 24, Alkaline Phosphatase 57, Lipase 214 Assessment and Plan - Problems (Diagnosis) (1) Renal colic Current Visit: Yes Status: Acute Plan: PAIN CONTROL IV FULIDS. UROLOGY CONSULT. DR HUMPHREY CALLED. (2) HTN (hypertension) Current Visit: Yes Status: Chronic Qualifiers: Hypertension type: essential hypertension Qualified Code(s): I10 - Essential (primary) hypertension - Advance Directives Does patient have a Living Will: Yes Does patient have a Durable POA for Healthcare: Yes
[2020-07-07 12:11] LABS: MPV 8.1 fL (7.6-11.3)
[2020-07-07 12:42] LABS: Platelet Estimate ADEQ
--- NOTE | 2020-07-07 14:40 | RAD REPORT ---
EXAM DESCRIPTION: CT Abdomen and Pelvis Without Intravenous Contrast CLINICAL HISTORY: The patient is 84 years old and is Female; FLANK PAIN TECHNIQUE: Axial computed tomography images of the abdomen and pelvis without intravenous contrast. Sagittal and coronal reformatted images were created and reviewed. This CT exam was performed usi ng one or more of the following dose reduction techniques: automated exposure control, adjustment o f the mA and/or kV according to patient size, and/or use of iterative reconstruction technique. COMPARISON: CT abdomen pelvis April 04, 2019. FINDINGS: Lung bases: Lingula and bilateral lower lobe linear atelectasis or scarring. ABDOMEN: Liver: Unremarkable. Gallbladder and bile ducts: Unremarkable. No calcified stones. No ductal dilation. Pancreas: Unremarkable. No ductal dilation. Spleen: Unremarkable. No splenomegaly. Adrenals: Unremarkable. No mass. Kidneys and ureters: Moderate left hydronephrosis and mild perinephric stranding, without ureter stone visualized. Bilateral nephrolithiasis. No right-sided hydronephrosis or right ureter stone. Stomach and bowel: Colonic diverticulosis. No bowel dilatation or obstruction. No bowel wall thickening. PELVIS: Appendix: No findings to suggest acute appendicitis. Bladder: Unremarkable. No stones. Reproductive: Hysterectomy. No adnexal mass. ABDOMEN and PELVIS: Intraperitoneal space: Unremarkable. No free air. No significant fluid collection. Bones/joints: Degenerative changes in the right hip. No acute fracture visualized. No dislocation. Soft tissues: Unremarkable. Vasculature: Unremarkable. No abdominal aortic aneurysm. Lymph nodes: No pathologically enlarged lymph nodes. IMPRESSION: 1. Moderate left hydronephrosis and mild perinephric stranding, without ureter stone v isualized. Considerations include nonvisualized calculus and recently passed calculus. 2. Bilateral nephrolithiasis. 3. Colonic diverticulosis. 4. Additional non-emergent findings as above. Electronically signed by: Ella Abreu MD 07/07/2020 5:33 AM VERTICAL LATHE OPERATOR Due to temporary technical issues with the PACS/Fluency reporting system, reports are being signed by the in house radiologists without review as a courtesy to insure prompt reporting. The interpreting radiologist is fully responsible for the content of the report.
[2020-07-07] MEDS: MEPERIDINE HCL 25 MG/ML SYR IVP PRN (20:36)
[2020-07-08] MEDS: D5 0.45 NS 1,000 ML IV SCH ×3 (01:57→16:08)
[2020-07-08 04:40] LABS: Absolute Lymphocytes (CBC) 2.1 K/uL (0.7-4.9); Basophils % 0.4 % (0-1.3); Hematocrit 34.7 % (36.0-45.0); Lymphocytes % 23.4 % (15.3-44.8); MPV 8.5 fL (7.6-11.3); RBC Red Blood Cell Count 3.81 M/uL (3.86-4.86)
[2020-07-08 04:49] LABS: Potassium 4.6 mmol/L (3.5-5.1)
[2020-07-08] MEDS: CEFTRIAXONE/SWI 1gm 1 GM/10 ML SYR IVP SCH (08:18)
[2020-07-08] MEDS: ENOXAPARIN 30 MG/0.3 ML SQ SCH ×2 (08:19→08:21)
[2020-07-08] MEDS: MEPERIDINE HCL 25 MG/ML SYR IVP PRN (10:40)
--- NOTE | 2020-07-08 20:46 | P.PN ---
Subjective Date of Service: 07/08/20 Chief Complaint: L SIDE FLANK PAIN RADIATES TO FRONT. Subjective: Improving HER PAIN HAS IMPROVED. NO NAUSEA OR VOMITING. DR. LIVE HUMPHREY HAS BEEN CONSULTED. Review of Systems 10-point ROS is otherwise unremarkable Gastrointestinal: As per HPI Physical Examination - Vital Signs Temperature: 98.2 F Blood Pressure: 141/62 Pulse: 64 Respirations: 19 Pulse Ox (%): 95 - Physical Exam General: Oriented x3, Mild distress HEENT: Atraumatic, PERRLA, EOMI Neck: Supple, JVD not distended Respiratory: Clear to auscultation bilaterally, Normal air movement Cardiovascular: Regular rate/rhythm, Normal S1 S2 Gastrointestinal: Normal bowel sounds, No tenderness Musculoskeletal: No tenderness Integumentary: No rashes Neurological: Normal speech, Normal tone, Normal affect Lymphatics: No axilla or inguinal lymphadenopathy - Studies Medications List Reviewed: Yes Assessment And Plan - Current Problems (Diagnosis) (1) Renal colic Current Visit: Yes Status: Acute Plan: PAIN CONTROL IV FULIDS. UROLOGY CONSULT. DR HUMPHREY CALLED. PAIN HAS IMPROVED. SHE MAY HAVE PASSED STONE. REDO SONOGRAM. (2) HTN (hypertension) Current Visit: Yes Status: Chronic Qualifiers: Hypertension type: essential hypertension Qualified Code(s): I10 - Essential (primary) hypertension
--- NOTE | 2020-07-08 23:21 | CON ---
Reason For Consultation: Left-sided hydronephrosis. History Of Present Illness: Ms. Marte is an 84-year-old woman with hypertension, GERD, CHF, and jose ateral lower extremity neuropathy, who has been seen and managed by Dr. Boyer several times over the last few years. She has had a history of kidney stones where she has had 2 stone events within the l ast 2 years. She describes initially having shockwave lithotripsy followed by ureteroscopy with lase r lithotripsy and stone extraction approximately 2 years ago. Upon review of the medical record, on 09/27/2018, Dr. Boyer performed left ureteroscopy and laser lithotripsy with removal of a 9 mm distal ureteral calculus. Apparently after that time, there was some concern about obstruction as a MAG3 L asix was performed on 02/27/2019 revealing a 78% function on the right with 22% function on the left and a T1/2 of 12 minutes. The report noted prior T1/2 of 21 minute on the left, indicating some obst ruction where the right side had a T1/2 of 3 minutes, completely nonobstructive. She presented to [facility] Emergency Department on Wednesday with severe 10/10 left-sided flank pain that radiated into the anter ior abdomen. The pain was dull and achy while being severe. She denied any associated fever or chil ls, and she had no nausea or vomiting. The Emergency Department performed a CT scan and found modera te left-sided hydronephrosis with hydroureter. Laboratory analyses were obtained as follows: 07/07/2020, white blood count 9.2, creatinine 1.62. 06/2023, creatinine 1.38. Upon review of her historical record on 09/07/2018, her creatinine was 1.33. In 2017, creatinine was 0.98. Urinalysis revealed positive nitrites and 3+ leukocyte esterase with a culture pending, but growing g reater than 100,000 colonies of gram-negative organisms. I reviewed the imaging directly and noted moderate left hydronephrosis with hydroureter dilated all t he way down to the ureterovesical junction on the left side with moderate atrophy of the left kidney and some small stones noted within the calices. The patient also notes some issues with urge incontinence associated with some mild daytime frequency and nocturia x2. For this incontinence, she wears up to 3 pads per day. She otherwise denies any o bstructive lower urinary symptoms or sense of incomplete emptying. Physical Examination: General: The patient is comfortable and well-appearing at this time with no signs of acute distress. She is alert, awake, and oriented. Lungs: There is no sign of dyspnea or respiratory distress. Heart: Her pulse is regular. Abdomen: Soft without tenderness and nondistended. There is questionable left-sided CVA tenderness. Assessment: This is an 84-year-old woman with hypertension, mild congestive heart failure, and histo ry of recurrent left nephroureterolithiasis, now with moderate hydronephrosis in the setting of a mil dly/moderately atrophic left kidney with hydroureteronephrosis down to the ureterovesical junction on the left side consistent with possible stricture related obstruction in the setting of likely compli cated urinary tract infection with possible pyelonephritis. Given the prolonged obstruction present since 2019 as observed on MAG3 Lasix renogram, and given the atrophy noted with today's more recent assessment, the hydronephrosis is not likely new. Given her i mprovement in her renal function down to her baseline since 2019 in August, but not to her 2017 base line, this may reflect a degree of chronic renal disease at this point. Optimally management of a ur eteral stricture would only be done in the setting of sterile urine and the absence of infection, if she persists with significant discomfort and/or her renal function fails to continue to improve, we m ay be forced to explore her via cystoscopy and attempt at left ureteral stent placement. Ideally, I would allow her to be treated with antimicrobial therapy and then follow up electively within the com ing weeks for assessment of the likely stricture disease. To that end, I recommended she be n.p.o. a fter midnight and her morning dose of Lovenox will be held while we repeat her blood work and serum B MP to assess for ongoing improvement in her renal function. If she fails to improve and continues to have evidence of flank pain and/or CVA tenderness, then we will plan on operative cystoscopy and lef t ureteral stent placement if possible tomorrow. CAMPBELL/NINFAL Voice ID: [id number] Report ID: [id number]
[2020-07-09] MEDS: MEPERIDINE HCL 25 MG/ML SYR IVP PRN (01:54)
[2020-07-09 06:41] LABS: Absolute Lymphocytes (CBC) 2.2 K/uL (0.7-4.9); Basophils % 0.6 % (0-1.3); Hematocrit 35.6 % (36.0-45.0); MPV 8.1 fL (7.6-11.3); RBC Red Blood Cell Count 3.92 M/uL (3.86-4.86)
[2020-07-09 07:00] LABS: Potassium 4.2 mmol/L (3.5-5.1)
[2020-07-09] MEDS: CEFTRIAXONE/SWI 1gm 1 GM/10 ML SYR IVP SCH (08:07)
[2020-07-09] MEDS ORDERED: HOME MED 1 EA UNK (Spironolactone [Aldactone] 50 MG) PO SCH (09:00)
[2020-07-09] MEDS ORDERED: MULTIVITAMIN PO SCH (09:00)
[2020-07-09] MEDS ORDERED: HOME MED 1 EA UNK (Paroxetine Hcl [Paxil] 30 MG) PO SCH (09:00)
[2020-07-09] MEDS ORDERED: BISOPROLOL FUMARATE 5 MG PO SCH (09:00)
[2020-07-09] MEDS ORDERED: FUROSEMIDE 20 MG PO SCH (09:00)
[2020-07-09] MEDS ORDERED: HOME MED 1 EA UNK (Losartan Potassium [Cozaar] 25 MG) PO SCH (09:00)
[2020-07-09 09:39] VITALS: O2SAT 91
[2020-07-09] MEDS: D5 0.45 NS 1,000 ML IV SCH (10:32)
[2020-07-09 12:24] VITALS: BP 151/69; TEMP 98.2
--- NOTE | 2020-07-09 14:13 | PN ---
Subjective: The patient is feeling much better today with no fever or chills or significant discomfo rt in the flank whatsoever. She does complain of some generalized lower abdominal discomfort and shayy e lower extremity neuropathic type discomfort, but this is nothing like what she was experiencing pre viously that brought her into the emergency room. Physical Examination: The patient remains afebrile and vitals are stable. Her creatinine has continued to trend down beneath the most recent baseline. Her abdomen is soft, nontender, and nondistended. There is no left-sided CVA tenderness. Assessment: This is an 84-year-old woman with diabetes, congestive heart failure, and hypertension w ith acute kidney injury associated with complicated urinary tract infection/pyelonephritis rather in the setting of chronic/preexisting left hydroureteronephrosis with a moderately atrophic left kidney and a history of left nephroureterolithiasis status post ureteroscopy and laser lithotripsy as well a s ESWL with Dr. Boyer in 2019. Since the patient's pain has resolved and her renal function continues to improve beyond her baseline , I recommend she be discharged with a remainder of a 14 day course of tissue penetrating antimicrobi al design to treat a pyelonephritis. Since the Klebsiella is sensitive to most antimicrobials includ ing the fluoroquinolones, that would be a good choice for management of her complicated UTI on discha rge. I also communicated with the patient the need for followup with me in the Urology Clinic within the next 2 weeks to discuss management of the left ureteral obstruction, which may be due to left ureteral stricture disease, potentially at th e UVJ. CAMPBELL/BANDAR Voice ID: [id number] Report ID: [id number]
[2020-07-09] MEDS ORDERED: LOSARTAN POTASSIUM 50 MG TABLET PO ONE (20:55)
--- NOTE | 2020-07-09 21:03 | P.DS ---
Admission Date: 07/07/20 Discharge Date: 07/09/20 Disposition: ROUTINE DISCHARGE Discharge Condition: FAIR Reason for Admission: L SIDE FLANK PAIN RADIATES TO FRONT. - Problems (1) Renal colic Status: Acute (2) HTN (hypertension) Status: Chronic Qualifiers: Hypertension type: essential hypertension Qualified Code(s): I10 - Essential (primary) hypertension Brief History of Present Illness: MS. JOHNS HAS HTN. DJD. HISTORY OF RENAL STONES HAS HAD COLIC BEFORE ABOUT A YEAR AGO TAKEN CARE BY DR. REED. SHE FOR LAST TWO DAYS HAS MODERATE TO SEVERE PAIN IN FLANK AND RADIATION TO FRONT. SHE HAS NO FEVER, BUT IS WEAK. Hospital Course: MS JOHNS HAS L ISDE HYDRONEPHROSIS AND RENAL CALCULI THAT ARE OLD . SHE DEVELOPED PAIN AND FEVER. SHE HAD PYELONEPHRITIS IN ADDITION TO DEHYDRATION. DR. ALCALA DOES NOT THINK ANY PROCEDURE IS NEEDED AT THIS POINT. SHE IS STABLE AT DISCHARGE. Vital Signs/Physical Exam: Temp Pulse Resp BP Pulse Ox 98.2 F 63 19 151/69 H 94 07/09/20 12:00 07/09/20 12:00 07/09/20 12:00 07/09/20 12:00 07/09/20 12:00 Laboratory Data at Discharge: WBC 6.8 K/uL (4.3-10.9) D 07/09/20 06:15 Hgb 11.9 g/dL (12.0-15.0) L 07/09/20 06:15 Hct 35.6 % (36.0-45.0) L 07/09/20 06:15 Plt Count 219 K/uL (152-406) 07/09/20 06:15 Sodium 139 mmol/L (136-145) 07/09/20 06:15 Potassium 4.2 mmol/L (3.5-5.1) 07/09/20 06:15 BUN 15 mg/dL (7-18) 07/09/20 06:15 Creatinine 1.23 mg/dL (0.55-1.3) 07/09/20 06:15 Glucose 109 mg/dL (74-106) H 07/09/20 06:15 Total Bilirubin 0.3 mg/dL (0.2-1.0) 07/07/20 04:35 AST 22 U/L (15-37) 07/07/20 04:35 ALT 24 U/L (12-78) 07/07/20 04:35 Alkaline Phosphatase 57 U/L (45-117) 07/07/20 04:35 Lipase 214 U/L (73-393) 07/07/20 04:35 Home Medications: Furosemide [Lasix*] 20 mg PO DAILY 07/07/20 Losartan Potassium [Cozaar] 25 mg PO DAILY 07/07/20 Multivitamin 1 tab PO DAILY 07/07/20 PARoxetine HCl [Paxil] 30 mg PO DAILY 07/07/20 Spironolactone [Aldactone] 50 mg PO DAILY 07/07/20 bisoproloL fumarate [Zebeta*] 5 mg PO DAILY 07/07/20 clonazePAM [Clonazepam] 0.5 mg PO DAILY 07/07/20 Followup: Be Marcus MD [Primary Care Provider] - Cresencio Alcala [COURTESY - CAN ADMIT] -
== END 2020-07-09 14:34 | disposition home or self-care (01) ==
LOC: ER 04:06 → ERHOLD 07:04 → 2ND 07:54
PROVIDERS: ADMIT Internal Medicine; ATTEND Internal Medicine
DX: N13.2 Hydronephrosis with renal and ureteral calculous obstruction (principal); N17.9 Acute kidney failure, unspecified; N39.0 Urinary tract infection, site not specified; Z20.828 Contact with and (suspected) exposure to other viral communicable diseases; M19.90 Unspecified osteoarthritis, unspecified site; I11.0 Hypertensive heart disease with heart failure; I50.9 Heart failure, unspecified; K21.9 Gastro-esophageal reflux disease without esophagitis; E11.40 Type 2 diabetes mellitus with diabetic neuropathy, unspecified; H40.9 Unspecified glaucoma; F41.9 Anxiety disorder, unspecified
CPT/HCPCS: 96365; 96361; 87088; 85025 ×3; 87086; 80048 ×3; 36415 ×3; 85049; 80076; 87077; 87186; 81003; 83690; 76377; 74176; 96375; 99284; U0002; J1650; J2270 ×2; J2175 ×4; J0696 ×3; G0378 ×5; J7799 ×4; J7030; J2405

== ENCOUNTER 2023-06-08 08:29 | Emergency (ER) | payer OTHER ==
--- OUTSIDE RECORDS SUMMARY | 2023-06-08 08:34 | XMS REPORT | Continuity of Care Document ---
:1935 Author Organization [facility] t Address [address] [facility] [address] [place] [address] Care Team Providers Name Role Phone Unavailable Unavailable Unavailable Payers Payer Name Policy Type Policy Number Effective Date Expiration Date Miracle brown [employer] Supplement 53 [id number] Common Plan [facility] Problems Condition Condition Condition Status Onset Resolution Last Treating Co mments Source Name Details Category Date Date Treatment Clinician Date [id number] Urge Problem Common incontinen Spirit ce [facility] [id number] 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 [facility] [id number] 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 - [facility] urinary [facility] [id number] Nephrouret Problem Co mmon erolithias [facility] is [facility] [id number] Hypocitrat Problem Co mmon uria [facility] Allergies, Adverse Reactions, Alerts Allergy Allergy Status Severity Reaction(s) Onset Inactive Treating Comm ents Source Name Type Date Date Clinician Codeine Codeine Active Unknown Common [facility] Social History Social Habit Start Date Stop Date Quantity Comments Source History of Tobacco Use Co mmon [facility] Sex Assigned At Com mon [facility] Medications Ordered Filled Start Stop Current Ordering Indication Dosage Frequency Signature Comments Components Source Medication Medication Date Date Medication? Clinician (SIG) Name Name Amoxicillin Amoxicillin 2021- No 1{capsu TID Amoxicilli 500 MG 500 MG 04-28 le} n 500 MG 00:00: 00:00 00 :00 Furosemide Furosemide No 1{table QD Furosemide 20 MG 20 MG t} 20 MG Propranolol Propranolol No 1{table QD Propranolo HCl 10 MG HCl 10 MG t} l HCl 10 MG clonazePAM clonazePAM No 1{table QD clonazePAM 0.5 MG 0.5 MG t_at_be 0.5 MG dtime} Multivitami Multivitami No 1{table QD Multivitam n - n - t} in - PARoxetine PARoxetine No 1{table QD PARoxetine HCl 30 MG HCl 30 MG t_in_th HCl 30 MG e_morni ng} Spironolact Spironolact No 1{table QD Spironolac one 50 MG one 50 MG t} tone 50 MG Furosemide Furosemide No 1{table QD Furosemide 20 MG 20 MG t} 20 MG clonazePAM clonazePAM No 1{table QD clonazePAM 0.5 MG 0.5 MG t_at_be 0.5 MG dtime} Spironolact Spironolact No 1{table QD Spironolac one 50 MG one 50 MG t} tone 50 MG Multivitami Multivitami No 1{table QD Multivitam n - n - t} in - PARoxetine PARoxetine No 1{table QD PARoxetine HCl 30 MG HCl 30 MG t_in_th HCl 30 MG e_morni ng} Propranolol Propranolol No 1{table QD Propranolo HCl 10 MG HCl 10 MG t} l HCl 10 MG Spironolact Spironolact No 1{table QD Spironolac one 50 MG one 50 MG t} tone 50 MG PARoxetine PARoxetine No 1{table QD PARoxetine HCl 30 MG HCl 30 MG t_in_th HCl 30 MG e_morni ng} Multivitami Multivitami No 1{table QD Multivitam n - n - t} in - clonazePAM clonazePAM No 1{table QD clonazePAM 0.5 MG 0.5 MG t_at_be 0.5 MG dtime} Furosemide Furosemide No 1{table QD Furosemide 20 MG 20 MG t} 20 MG Propranolol Propranolol No 1{table QD Propranolo HCl 10 MG HCl 10 MG t} l HCl 10 MG Vital Signs Vital Name Observation Time Observation Value Comments Source height 2022-08-26 16:30:00 66 [in_i] Common [facility] weight 2022-08-26 16:30:00 172.4 [lb_av] [facility] temperature 2022-08-26 16:30:00 98.6 [degF] [facility] bmi 2022-08-26 16:30:00 27.82 kg/m2 [facility] oximetry 2022-08-26 16:30:00 99 % [facility] respiratory rate 2022-08-26 16:30:00 16 /min Comm on [facility] blood pressure 2022-08-26 16:30:00 165 mm[Hg] Common [facility] - systolic [facility] blood pressure 2022-08-26 16:30:00 74 mm[Hg] Common [facility] - diastolic [facility] height 2022-04-22 15:00:00 66 [in_i] [facility] weight 2022-04-22 15:00:00 175 [lb_av] [facility] temperature 2022-04-22 15:00:00 97.6 [degF] [facility] bmi 2022-04-22 15:00:00 28.24 kg/m2 [facility] oximetry 2022-04-22 15:00:00 93 % [facility] respiratory rate 2022-04-22 15:00:00 16 /min Comm on [facility] blood pressure 2022-04-22 15:00:00 180 mm[Hg] Common [facility] - systolic [facility] blood pressure 2022-04-22 15:00:00 78 mm[Hg] Common [facility] Procedures This patient has no known procedures. Encounters Start End Encounter Admission Attending Care Care Encounter Source Date/Time Date/Time Type Type Clinicians Facility Department ID 2022-04-23 Outpatient STLMLC STLMLC [id number] Common 11:05:03 [facility] 2022-04-22 Outpatient STLMLC STLMLC [id number] Common 14:55:02 [facility] 2022-08-26 2022-08-26 OFFICE STLMLC STLMLC [id number] Co mmon 00:00:00 00:00:00 VISIT [facility] ESTAB PT - [facility] LEVEL [address] [facility] 2022-04-28 2022-04-28 (TEL) STLMLC STLMLC [id number] Co mmon 00:00:00 00:00:00 [facility] 2022-04-22 2022-04-22 OFFICE STLMLC STLMLC [id number] Co mmon 00:00:00 00:00:00 VISIT EST Spir it PT LEVEL 3 - [facility] Results This patient has no known results.
[2023-06-08] MEDS ORDERED: ONDANSETRON 4 MG/2 ML VIAL ONE (09:18)
[2023-06-08] MEDS ORDERED: FENTANYL CITR 100 MCG/2 ML ONE (09:18)
[2023-06-08] MEDS ORDERED: NA CHLORIDE 0.9% 500 ML ONE (09:18)
[2023-06-08] MEDS ORDERED: NA CHLORIDE 0.9% 1,000 ML ONE (09:19)
--- NOTE | 2023-06-08 09:24 | RAD REPORT ---
EXAM DESCRIPTION: CT - Stone Protocol - 06/08/2023 9:04 am CLINICAL HISTORY: Abdominal pain. COMPARISON: 2019 TECHNIQUE: Computed axial tomography of the abdomen pelvis was obtained without oral or IV contrast. Lack of IV and oral contrast limits evaluation of solid organs, appendix, bowel, and vessels. Schwartz l reformatted images were obtained and reviewed. All CT scans are performed using dose optimization technique as appropriate and may include automated exposure control or mA/KV adjustment according to patient size. FINDINGS: Marked left hydronephrosis. Left renal cortical thinning. The left ureter is dilated. 3 mi llimeter calculus mid to distal left ureter. Additional 3 millimeter calculus distal left ureter. Right renal calculus. No hydronephrosis The liver, spleen, pancreas and adrenals appear grossly normal There is no evidence of diverticulitis. The appendix appears normal Hysterectomy. No adnexal mass. Small umbilical hernia IMPRESSION: Two calculi left ureter. One results in marked left hydronephrosis
[2023-06-08 09:33] LABS: Specific Gravity 1.012 (1.005-1.030); Urine Bacteria None Seen /HPF (<20); Urine Bilirubin NEGATIVE (Negative); Urine Blood Negative (Negative); Urine Clarity Turbid (Clear); Urine Color Light-Yellow (Yellow); Urine Glucose NEGATIVE (Negative); Urine Mucus Slight /HPF (None Seen); Urine Protein NEGATIVE (Negative); Urine RBC <5 /HPF (None Seen); Urine Urobilinogen Normal (Normal)
--- NOTE | 2023-06-08 09:38 | RAD REPORT ---
EXAM DESCRIPTION: Renetta Single View06/08/2023 9:10 am CLINICAL HISTORY: Cough COMPARISON: none FINDINGS: The lungs appear clear of acute infiltrate. The heart is borderline enlarged IMPRESSION: No acute abnormalities displayed
[2023-06-08 09:57] LABS: Absolute Lymphocytes (CBC) 1.9 K/uL (0.7-4.9); Hematocrit 39.9 % (36.0-45.0); Lymphocytes % 26.8 % (15.3-44.8); MCV 88.7 fL (80-100); MPV 7.9 fL (7.6-11.3); Platelets 221 thou/uL (152-406)
[2023-06-08 10:18] LABS: Albumin 3.6 g/dL (3.4-5.0); Bilirubin Total 0.5 mg/dL (0.2-1.0); Potassium 3.8 mEq/L (3.5-5.1); Protein, Total 7.1 g/dL (6.4-8.2)
[2023-06-08] MEDS ORDERED: CEFTRIAXONE 1000 MG/VIAL ONE (11:18)
--- NOTE | 2023-06-08 11:52 | EDPHYS ---
Physician Documentation [facility] Name: Karen Marte Age: 87 yrs Sex: Female : 1935 Arrival Date: 06/08/2023 Time: 08:29 Bed 14 Private MD: ED Physician Vladimir Hansen HPI: 06/08 11:41 This 87 yrs old Female presents to ER via Ambulatory with complaints of nickolas Possible Kidney Stone. Historical: - Allergies: 08:51 Codeine; iw - PMHx: 08:51 Hypertension; kidney disease; Kidney stones; iw - Immunization history:: Adult Immunizations up to date. - Social history:: Smoking status: Patient denies any tobacco usage or history of. ROS: 11:45 Constitutional: Negative for fever, chills, and weight loss, Eyes: Negative for injury, nickolas pain, redness, and discharge, ENT: Negative for injury, pain, and discharge, Neck: Negative for injury, pain, and swelling, Cardiovascular: Negative for chest pain, palpitations, and edema, Respiratory: Negative for shortness of breath, cough, wheezing, and pleuritic chest pain, : Negative for injury, bleeding, discharge, and swelling, MS/Extremity: Negative for injury and deformity, Skin: Negative for injury, rash, and discoloration, Neuro: Negative for headache, weakness, numbness, tingling, and seizure, Psych: Negative for depression, anxiety, suicide ideation, homicidal ideation, and hallucinations, Allergy/Immunology: Negative for hives, rash, and allergies, Endocrine: Negative for neck swelling, polydipsia, polyuria, polyphagia, and marked weight changes, Hematologic/Lymphatic: Negative for swollen nodes, abnormal bleeding, and unusual bruising, 11:45 Abdomen/GI: Positive for abdominal pain, of the posterior aspect of left lateral abdomen, anterior aspect of left lateral abdomen, left upper quadrant and left lower quadrant, 11:45 Back: Positive for flank pain, on the left, radiated pain, Exam: 11:45 Constitutional: This is a well developed, well nourished patient who is awake, alert, nickolas and in no acute distress. Head/Face: Normocephalic, atraumatic. Eyes: Pupils equal round and reactive to light, extra-ocular motions intact. Lids and lashes normal. Conjunctiva and sclera are non-icteric and not injected. Cornea within normal limits. Periorbital areas with no swelling, redness, or edema. ENT: Nares patent. No nasal discharge, no septal abnormalities noted. Tympanic membranes are normal and external auditory canals are clear. Oropharynx with no redness, swelling, or masses, exudates, or evidence of obstruction, uvula midline. Mucous membranes moist. Neck: Trachea midline, no thyromegaly or masses palpated, and no cervical lymphadenopathy. Supple, full range of motion without nuchal rigidity, or vertebral point tenderness. No Meningismus. Chest/axilla: Normal chest wall appearance and motion. Nontender with no deformity. No lesions are appreciated. Cardiovascular: Regular rate and rhythm with a normal S1 and S2. No gallops, murmurs, or rubs. Normal PMI, no JVD. No pulse deficits. Respiratory: Lungs have equal breath sounds bilaterally, clear to auscultation and percussion. No rales, rhonchi or wheezes noted. No increased work of breathing, no retractions or nasal flaring. Abdomen/GI: Soft, non-tender, with normal bowel sounds. No distension or tympany. No guarding or rebound. No evidence of tenderness throughout. Female : Normal external genitalia. Skin: Warm, dry with normal turgor. Normal color with no rashes, no lesions, and no evidence of cellulitis. MS/ Extremity: Pulses equal, no cyanosis. Neurovascular intact. Full, normal range of motion. Neuro: Awake and alert, GCS 15, oriented to person, place, time, and situation. Cranial nerves II-XII grossly intact. Motor strength 5/5 in all extremities. Sensory grossly intact. Cerebellar exam normal. Normal gait. Psych: Awake, alert, with orientation to person, place and time. Behavior, mood, and affect are within normal limits. 11:45 Back: pain, is absent, ROM is normal, normal spinal alignment noted, CVA tenderness, that is mild, is noted on the left, vertebral tenderness, is not appreciated, muscle spasm, is not present, Straight leg raises: of both lower extremities does not illicit pain, 11:45 : CVA tenderness, is absent, Vital Signs: 08:50 BP 155 / 93; Pulse 76; Resp 16; Temp 98.4; Pulse Ox 91% on R/A; iw 09:30 BP 150 / 57; Pulse 56; Resp 16; Pulse Ox 95% ; ko1 11:30 BP 157 / 61; Pulse 60; Resp 16; Pulse Ox 97% ; ko1 11:59 BP 148 / 60; Pulse 58; Resp 16; Pulse Ox 98% ; ko1 MDM: 08:53 Patient medically screened. nickolas 11:46 Differential diagnosis: nephrolithiasis, pyelonephritis, UTI, diverticulitis, nickolas pancreatitis, diverticulitis, gastritis, non-specific abd pain, pancreatitis, Peptic Ulcer Disease, Pyelonephritis, Ureterolithiasis, urinary tract infection. Data reviewed: vital signs, nurses notes, lab test result(s), EKG, radiologic studies, CT scan, plain films. Consideration of Admission/Observation Escalation of care including admission/observation considered. I considered the following discharge prescriptions or medication management in the emergency department Medications were administered in the Emergency Department. See MAR. Independent interpretation of the following test(s) in the Emergency Department CT Scan: My interpretation is ct stone report. Test considered but Not performed: Ultrasound no abd usg. Historians other than the Patient: Daughter/Son: daughter , well informed. Care significantly affected by the following chronic conditions: Hypertension, Chronic Kidney Disease, kidney stones. Counseling: I had a detailed discussion with the patient and/or guardian regarding the historical points, exam findings, and any diagnostic results supporting the discharge/admit diagnosis, lab results, radiology results, the need for outpatient follow up, for definitive care, a family practitioner, a urologist. 06/08 08:55 Order name: CBC with Diff; Complete Time: 10:37 [facility] 06/08 08:55 Order name: CMP; Complete Time: 10:37 [facility] 06/08 08:55 Order name: Lipase; Complete Time: 10:37 [facility] 06/08 08:55 Order name: Urinalysis w/ reflexes; Complete Time: 10:37 [facility] 06/08 08:55 Order name: CT Stone Protocol; Complete Time: 10:37 [facility] 06/08 08:55 Order name: Chest Single View XRAY; Complete Time: 10:37 [facility] 06/08 08:55 Order name: IV Saline Lock; Complete Time: 09:41 [facility] 06/08 08:55 Order name: Labs collected and sent; Complete Time: 09:41 [facility] Administered Medications: 09:41 Drug: Ondansetron IVP 4 mg IVP once; over 2 minutes Route: IVP; Site: left antecubital; ko1 12:02 Follow up: Response: No adverse reaction; Nausea is decreased ko1 09:41 Drug: fentaNYL (PF) IVP 25 mcg IVP once Route: IVP; Site: left antecubital; ko1 12:01 Follow up: Response: No adverse reaction; Pain is decreased ko1 09:41 Drug: NS 0.9% IV 1000 ml IV at 125 ml/hr continuous Route: IV; Rate: 125 ml/hr; Site: ko1 left antecubital; 12:01 Follow up: Response: No adverse reaction; IV Status: Completed infusion; IV Intake: ko1 1000ml 10:07 Drug: NS 0.9% IV 500 ml IV at bolus once Route: IV; Rate: bolus; Site: left antecubital;ko1 12:01 Follow up: Response: No adverse reaction; IV Status: Completed infusion; IV Intake: ko1 500ml 11:14 Drug: Rocephin IV 1 grams IV at per protocol once; Given slow IV push per pharmacy ko1 instructions Route: IV; Rate: per protocol; Site: left antecubital; 12:00 Follow up: Response: No adverse reaction; IV Status: Completed infusion; IV Intake: ko1 100ml 11:56 Not Given (Patient Refused): fentanyl (pf)25 mcg IVP once ko1 11:56 Drug: Flomax PO 0.4 mg PO once Route: PO; ko1 12:16 Follow up: Response: No adverse reaction ko1 11:56 Drug: Ciprofloxacin PO 250 mg PO once Route: PO; ko1 12:16 Follow up: Response: No adverse reaction ko1 Disposition Summary: 06/08/23 11:51 Discharge Ordered Notes: Location: Home nickolas Problem: new nickolas Symptoms: have improved nickolas Condition: Stable nickolas Diagnosis - Hydronephrosis with renal and ureteral calculous obstruction - 2 x 3 mm left distal nickolas calculi - UTI/ Urinary tract infection, site not specified nickolas Followup: nickolas - With: Private Physician - When: 2 - 3 days - Reason: Recheck today's complaints, Continuance of care, Re-evaluation by your physician Followup: nickolas - With: Cresencio Alcala MD - When: 2 - 3 days - Reason: Recheck today's complaints, Re-evaluation by your physician Discharge Instructions: - Discharge Summary Sheet nickolas - Dysuria nickolas - Kidney Stones nickolas - Urinary Tract Infection, Adult nickolas - Kidney Stones, [id number] nickolas - Urinary Tract Infection, Adult, [id number] nickolas - Hydronephrosis nickolas - Dietary Guidelines to Help Prevent Kidney Stones nickolas Forms: - Medication Reconciliation Form [facility] - Thank You Letter [facility] - Antibiotic Education nickolas - Prescription Opioid Use nickolas - Patient Portal Instructions [facility] - Leadership Thank You Letter [facility] Prescriptions: - ondansetron 4 mg Oral Tablet,disintegrating - take 1 tablet ORAL route every 6-8 hours; 20 tablet; Refills: 0, Product nickolas Selection Permitted - Flomax 0.4 mg Oral capsule - take 2 capsule ORAL route every 24 hours; 20 capsule; Refills: 0, Product [facility] Selection Permitted - Cipro 250 mg Oral tablet - take 1 tablet ORAL route every 12 hours; 14 tablet; Refills: 0, Product nickolas Selection Permitted - Tramadol 50 mg Oral tablet - take 1 tablet ORAL route every 6 hours as needed; 20 tablet; Refills: 0, [facility] Product Selection Permitted Signatures: Dispatcher [employer] Vladimir Montoya MD MD cha Williams, Irene, RN RN Marisela Valencia RN RN ko1
--- NOTE | 2023-06-08 11:52 | ER ---
Nurse's Notes [facility] Name: Karen Marte Age: 87 yrs Sex: Female : 1935 Arrival Date: 06/08/2023 Time: 08:29 Bed 14 Private MD: Diagnosis: Hydronephrosis with renal and ureteral calculous obstruction-2 x 3 mm left distal calculi;UTI/ Urinary tract infection, site not specified Presentation: 06/08 08:50 Chief complaint: Patient states: hx of kidney stones, has LLQ pain this morning , iw radiates to flank, see s Dr. Alcala. Coronavirus screen: At this time, the client does not indicate any symptoms associated with coronavirus-19. Ebola Screen: Patient negative for fever greater than or equal to 101.5 degrees Fahrenheit, and additional compatible Ebola Virus Disease symptoms Patient denies exposure to infectious person. Patient denies travel to an Ebola-affected area in the 21 days before illness onset. No symptoms or risks identified at this time. Initial Sepsis Screen: Does the patient meet any 2 criteria? No. Patient's initial sepsis screen is negative. Does the patient have a suspected source of infection? No. Patient's initial sepsis screen is negative. Risk Assessment: Do you want to hurt yourself or someone else? Patient reports no desire to harm self or others. Onset of symptoms was June 08, 2023. 08:50 Method Of Arrival: Ambulatory iw 08:50 Acuity: ALEXANDER 3 iw Historical: - Allergies: 08:51 Codeine; iw - PMHx: 08:51 Hypertension; kidney disease; Kidney stones; iw - Immunization history:: Adult Immunizations up to date. - Social history:: Smoking status: Patient denies any tobacco usage or history of. Screenin:30 [facility] ED Fall Risk Assessment (Adult) History of falling in the last 3 months, ko1 including since admission No falls in past 3 months (0 pts) Confusion or Disorientation No (0 pts) Intoxicated or Sedated No (0 pts) Impaired Gait Yes (1 pt) Mobility Assist Device Used Yes (1 pt) Altered Elimination No (0 pt) Score/Fall Risk Level 0 - 2 = Low Risk Oriented to surroundings, Maintained a safe environment, Educated pt \T\ family on fall prevention, incl call for assistance when getting out of bed, Assessed \T\ reinforced patient's understanding of fall precautions, Provided non-skid footwear, Hourly rounding (assess needs \T\ fall precautionary measures) done, Used ambulatory aids as needed (educated on \T\ assisted with), Used gait belt as appropriate. Abuse screen: Denies threats or abuse. Denies injuries from another. Nutritional screening: No deficits noted. Tuberculosis screening: No symptoms or risk factors identified. Assessment: 09:30 General: Appears in no apparent distress. Behavior is calm, cooperative, appropriate ko1 for age. Pain: Complains of pain in left flank pain. Neuro: No deficits noted. Cardiovascular: Patient's skin is warm and dry. edema to bilateral lower ext. Respiratory: No deficits noted. GI: Bowel sounds present X 4 quads. Abd is soft and non tender X 4 quads. : No deficits noted. EENT: hard of hearing. Derm: No deficits noted. Musculoskeletal: Swelling present in BLE. 11:11 Reassessment: CONTACT DAUGHTER DANIEL [phone]. db Vital Signs: 08:50 BP 155 / 93; Pulse 76; Resp 16; Temp 98.4; Pulse Ox 91% on R/A; iw 09:30 BP 150 / 57; Pulse 56; Resp 16; Pulse Ox 95% ; ko1 11:30 BP 157 / 61; Pulse 60; Resp 16; Pulse Ox 97% ; ko1 11:59 BP 148 / 60; Pulse 58; Resp 16; Pulse Ox 98% ; ko1 ED Course: 08:32 Patient arrived in ED. im 08:51 Triage completed. iw 08:52 Marisela Guzman RN is Primary Nurse. ko1 08:53 Vladimir Hansen MD is Attending Physician. nickolas 09:05 CT Stone Protocol In Process Unspecified. EDMS 09:12 Chest Single View XRAY In Process Unspecified. EDMS 09:30 Inserted saline lock: 22 gauge in left antecubital area, using aseptic technique. Blood ko1 collected. 09:30 Patient has correct armband on for positive identification. Fall risk band placed. Bed ko1 in low position. Call light in reach. Side rails up X 1. Pulse ox on. NIBP on. Door closed. Noise minimized. Lights dimmed. Warm blanket given. 09:41 CBC with Diff Sent. ko1 09:41 CMP Sent. ko1 09:41 Lipase Sent. ko1 11:30 No provider procedures requiring assistance completed. ko1 11:30 Provided Education on: na. ko1 11:49 Cresencio Alcala MD is Referral Physician. nickolas 11:59 IV discontinued, intact, bleeding controlled, No redness/swelling at site. Pressure ko1 dressing applied. Administered Medications: : Drug: Ondansetron IVP 4 mg IVP once; over 2 minutes Route: IVP; Site: left antecubital; ko1 12:02 Follow up: Response: No adverse reaction; Nausea is decreased ko1 09:41 Drug: fentaNYL (PF) IVP 25 mcg IVP once Route: IVP; Site: left antecubital; ko1 12:01 Follow up: Response: No adverse reaction; Pain is decreased ko1 09:41 Drug: NS 0.9% IV 1000 ml IV at 125 ml/hr continuous Route: IV; Rate: 125 ml/hr; Site: ko1 left antecubital; 12:01 Follow up: Response: No adverse reaction; IV Status: Completed infusion; IV Intake: ko1 1000ml 10:07 Drug: NS 0.9% IV 500 ml IV at bolus once Route: IV; Rate: bolus; Site: left antecubital;ko1 12:01 Follow up: Response: No adverse reaction; IV Status: Completed infusion; IV Intake: ko1 500ml 11:14 Drug: Rocephin IV 1 grams IV at per protocol once; Given slow IV push per pharmacy ko1 instructions Route: IV; Rate: per protocol; Site: left antecubital; 12:00 Follow up: Response: No adverse reaction; IV Status: Completed infusion; IV Intake: ko1 100ml 11:56 Not Given (Patient Refused): fentanyl (pf)25 mcg IVP once ko1 11:56 Drug: Flomax PO 0.4 mg PO once Route: PO; ko1 12:16 Follow up: Response: No adverse reaction ko1 11:56 Drug: Ciprofloxacin PO 250 mg PO once Route: PO; ko1 12:16 Follow up: Response: No adverse reaction ko1 Medication: 11:30 VIS not applicable for this client. ko1 Intake: 12:00 IV: 100ml; Total: 100ml. ko1 12:01 IV: 1000ml; Total: 1100ml. ko1 12:01 IV: 500ml; Total: 1600ml. ko1 Outcome: 11:51 Discharge ordered by . nickolas 12:32 Discharged to home ambulatory, with family, koMeggan 12:32 Condition: stable 12:32 Discharge instructions given to patient, family, Instructed on discharge instructions, follow up and referral plans. medication usage, Demonstrated understanding of instructions, follow-up care, medications, Prescriptions given X 4, 12:33 Patient left the ED. ko1 Signatures: Dispatcher [employer] ED[facility] Vladimir Hansen MD MD cha Williams, Irene, Marisela Enciso RN, RN RN ko1 Marisabel Dean, RN RN Nichole Nascimento
[2023-06-08] MEDS ORDERED: CIPROFLOXACIN HCL 500 MG TAB ONE (11:59)
[2023-06-08] MEDS ORDERED: TAMSULOSIN 0.4 MG SR CAP ONE (11:59)
[2023-06-10 14:59] VITALS: BP 148/60; TEMP 98.4; O2SAT 98
== END 2023-06-08 12:33 | disposition home or self-care (01) ==
LOC: ER 08:29
DX: N13.2 Hydronephrosis with renal and ureteral calculous obstruction (principal); N39.0 Urinary tract infection, site not specified; Z87.442 Personal history of urinary calculi; I10 Essential (primary) hypertension; Z88.5 Allergy status to narcotic agent
CPT/HCPCS: 96365; 96361; 85025; 81001; 36415; 83690; 80053; 76377; 74176; 71045; 96375; 99284; J3010; J2405; J7040; J7030; J0696